=== PATIENT | female | born 1975 | race American Indian/Alaskan Native ===

== ENCOUNTER 2017-06-21 09:08 | Emergency (ER) | payer BC ==
[2017-06-21 09:45] LABS: Bilirubin,Urine NEG (Negative); Blood,Urine NEG (Negative); Ketones,Urine NEG (Negative); Leukocyte Esterase,Urine NEG (Negative); Mucus,Urine FEW /HPF; Nitrite,Urine NEG (Negative); Protein,Urine <15 mg/dL mg/dL (Negative); Urobilinogen,Urine < 2.0 mg/dL (<2.0)
[2017-06-21 13:41] VITALS: BP 142/93
--- NOTE | 2017-06-21 13:49 | Emergency Department Report ---
ED Female HPI - General Chief complaint: Abdominal Pain Stated complaint: CRAMPS Time Seen by Provider: 06/21/17 13:29 Source: patient Mode of arrival: Ambulatory Limitations: No Limitations - History of Present Illness Initial comments: 41 yo female with a past medical history of uterine fibroids presents to the hospital with her first . Patient has been having suprapubic cramping pain since June 10. She was taken 2 positive test at home has not yet initiated care. Cramps are intermittent, moderate in intensity, without aggravating or relieving factors. She denies vaginal bleeding, discharge, fever, or dysuria. His blood pressure was elevated upon arrival she states that she typically has elevation of blood pressure with doctor visits. Last BP checked was during a physical at work and was within normal limits. Patient states she is feeling nervous at this time - Related Data Previous Rx's Medication Instructions Recorded Last Taken Type Vit W-Ca,Fe,FA(<1 mg) 1 each PO DAILY #30 tablet 06/21/17 Unknown Rx [ Vitamins] Allergies Allergy/AdvReac Type Severity Reaction Status Date / Time No Known Allergies Allergy Verified 06/21/17 09:23 ED Review of Systems ROS: Stated complaint: CRAMPS Other details as noted in HPI Comment: All other systems reviewed and negative Other: Constitutional: No fevers chills Eyes: No eye pain visual changes ENT: No ear pain or throat pain Neck: Denies pain Respiratory: Denies cough wheezing shortness of breath Cardiovascular: Denies chest pain, palpitations, syncope GI: as per hpi : Denies dysuria Musculoskeletal: Denies back pain Skin: Denies rash, lesions, erythema Neurologic: Denies headache, numbness, weakness Psychiatric: Denies suicidal ideation, hallucinations ED Past Medical Hx - Past Medical History Previous Medical History?: No - Surgical History Past Surgical History?: Yes Additional Surgical History: fibroids - Social History Smoking Status: Never Smoker Substance Use Type: None - Medications Home Medications: Home Medications Medication Instructions Recorded Confirmed Last Taken Type Vit W-Ca,Fe,FA(<1 mg) 1 each PO DAILY #30 tablet 06/21/17 Unknown Rx [ Vitamins] ED Physical Exam - General Limitations: No Limitations - Other Other exam information: General: No limitations, patient is alert in no acute distress Head exam: Atraumatic, normocephalic Eyes exam: Normal appearance ENT: Moist mucous membrane, normal oropharynx Neck exam: Normal inspection, full range of motion Respiratory exam: Clear to auscultation bilateral, no wheezes, rales, crackles Cardiovascular: Normal rate and rhythm, normal heart sounds Abdomen: Soft, nondistended, and nontender, with normal bowel sounds, no rebound, or guarding Extremity: Full range of motion normal inspection no deformity Back: Normal Inspection, full range of motion, no tenderness Neurologic: Alert, oriented x3, cranial nerves intact, no motor or sensory deficit Psychiatric: normal affect, normal mood Skin: Warm, dry, intact ED Course Vital Signs 06/21/17 06/21/17 06/21/17 09:19 13:40 14:35 Temperature 98.3 F Pulse Rate 97 H 87 Respiratory 16 18 16 Rate Blood Pressure 161/103 Blood Pressure 142/93 [Right] O2 Sat by Pulse 100 98 Oximetry - Reevaluation(s) Reevaluation #1: 06/21/17 15:39 Blood pressure improved spontaneously without intervention. ED Medical Decision Making - Radiology Data Radiology results: report reviewed Transvaginal/pelvic ultrasound: Single living IUP 6 weeks 3 days gestation. heart 136. EDC by ultrasound 02/11/2018 - Medical Decision Making Plant to d/c patient home with [facility] follow-up for current as well as PMD for blood pressure monitoring. vitamins will be prescribed. No signs of infection or ectopic at this - Differential Diagnosis ectopic, threatened miscarriage, UTI Critical Care Time: No Critical care attestation.: If time is entered above; I have spent that time in minutes in the direct care of this critically ill patient, excluding procedure time. ED Disposition Clinical Impression: 6 weeks gestation of , Elevated blood pressure reading Disposition: DC-01 TO HOME OR SELFCARE Is pt being admited?: No Condition: Stable Instructions: (ED), How to Take a Blood Pressure (ED) Additional Instructions: Take the vitamins as prescribed. Follow-up with the [facility] doctor for further management of your and a primary care doctor for further management of your blood pressure. Check your blood pressure at home and keep a record so that your primary care doctor may determine if blood pressure medication is necessary. Prescriptions: Vit W-Ca,Fe,FA(<1 mg) [ Vitamins] 1 each PO DAILY #30 tablet Referrals: PRIMARY CAREMD [Primary Care Provider] - 3-5 Days MIKHAIL BISHOP MD [Staff Physician] - 3-5 Days (Primary care doctor) [facility] [Provider Group] - 3-5 Days ([facility] doctor ) Time of Disposition: 15:43
--- NOTE | 2017-06-21 15:31 | Ultrasound Report ---
FINAL REPORT PROCEDURE: US OB TRANSVAGINAL and transabdominal TECHNIQUE: Real-time transabdominal and transvaginal sonography of the uterus, placenta, amniotic fluid, adnexa, and fetus was performed with image documentation. Measurements were obtained to determine age/size. M-mode Doppler was used to document heartbeat. CPT 67823 and 09888 HISTORY: + preg, cramping COMPARISON: No prior studies are available for comparison. FINDINGS: ADDITIONAL GESTATION: None. CRL: 6.4 mm, which corresponds to a gestational age of: 6 weeks, 3 days. Yolk Sac: Normal. Embryonic Cardiac Activity: 136 beats per minute Gestational Sac: Normal. Amniotic fluid: Normal. Cervix: Approximately 5 centimeters in length Right Ovary: 2 millimeter echogenic focus is noted Left Ovary: 3 centimeter simple appearing cyst is noted Estimated delivery date: 02/11/2018 No free fluid is seen IMPRESSION: 1. Single live intrauterine gestation at approximately 6 weeks, 3 days. 2. EDC by US 02/11/2018 3. Complete anatomic survey at 18-20 weeks suggested.
--- NOTE | 2017-06-21 15:31 | Ultrasound Report ---
FINAL REPORT PROCEDURE: US OB TRANSVAGINAL and transabdominal TECHNIQUE: Real-time transabdominal and transvaginal sonography of the uterus, placenta, amniotic fluid, adnexa, and fetus was performed with image documentation. Measurements were obtained to determine age/size. M-mode Doppler was used to document heartbeat. CPT 45750 and 58978 HISTORY: + preg, cramping COMPARISON: No prior studies are available for comparison. FINDINGS: ADDITIONAL GESTATION: None. CRL: 6.4 mm, which corresponds to a gestational age of: 6 weeks, 3 days. Yolk Sac: Normal. Embryonic Cardiac Activity: 136 beats per minute Gestational Sac: Normal. Amniotic fluid: Normal. Cervix: Approximately 5 centimeters in length Right Ovary: 2 millimeter echogenic focus is noted Left Ovary: 3 centimeter simple appearing cyst is noted Estimated delivery date: 02/11/2018 No free fluid is seen IMPRESSION: 1. Single live intrauterine gestation at approximately 6 weeks, 3 days. 2. EDC by US 02/11/2018 3. Complete anatomic survey at 18-20 weeks suggested. PROCEDURE: TECHNIQUE: HISTORY: COMPARISON: FINDINGS: IMPRESSION:
== END 2017-06-21 15:50 | disposition home or self-care (01) ==
LOC: ED 09:08
DX: O26.891 Other specified pregnancy related conditions, first trimester (principal); R03.0 Elevated blood-pressure reading, without diagnosis of hypertension; R10.30 Lower abdominal pain, unspecified; Z3A.01 Less than 8 weeks gestation of pregnancy
CPT/HCPCS: 36415; 76801; 76817; 81001; 84702; 99284

== ENCOUNTER 2019-06-03 13:44 | Outpatient (CLI) | payer BC ==
--- NOTE | 2019-06-06 11:48 | Mammography Report ---
BILATERAL DIGITAL SCREENING MAMMOGRAM WITH CAD INDICATION: Baseline screening mammography. TECHNIQUE: Digital bilateral 2D mammography was obtained in the craniocaudal and mediolateral obliq ue projections. This examination was interpreted with the benefit of Computer-Aided Detection analysi s. COMPARISON: None. FINDINGS: Breast Density: The breasts are heterogeneously dense, which may obscure small masses. No mass, architectural distortion or suspicious calcifications. IMPRESSION:No mammographic evidence of malignancy. BI-RADS Category 1: Negative. No mammographic evidence of malignancy. Recommend routine screening m ammography in one year. A "normal" or negative report should not discourage follow up or biopsy of a clinically significant f inding. A written summary of these findings will be mailed to the patient. The patient will be entered into a mammography reporting system which will generate a reminder letter for the patient's next appointmen t at the appropriate interval. The [employer] recommends yearly mammograms starting at age 40 and continuing as l carmelita as a woman is in good health. Breast MRI is recommended for women with an approximate 20-25% or greater lifetime risk of breast cancer, including women with a strong family history of breast or ova polo cancer or who have been treated for Hodgkin's disease. Signer Name: Ariel Devlin MD Signed: 06/06/2019 11:44 AM Workstation Name: [id number]
== END 2019-06-03 13:45 | disposition home or self-care (01) ==
LOC: SPVWC 13:44
PROVIDERS: ATTEND Obstetrics & Gynecology
DX: Z12.31 Encounter for screening mammogram for malignant neoplasm of breast (principal)
CPT/HCPCS: 77067